=== PATIENT | male | born 1955 | race Caucasian/White ===

== ENCOUNTER 2017-05-27 07:35 | Emergency (ER) | payer OTHER ==
[2017-05-27 07:49] VITALS: TEMP 98.1
[2017-05-27] MEDS ORDERED: SODIUM CHLORIDE 0.9% 500 ML IV STA (08:08)
[2017-05-27] MEDS ORDERED: SODIUM CHLORIDE 0.9% 1,000 ML IV STA (08:08)
[2017-05-27] MEDS ORDERED: methylPREDNISolone SOD SUCCI 125 MG/2 ML VIAL IV STA (08:08)
[2017-05-27] MEDS ORDERED: IPRATROPIUM-ALBUTEROL 3 ML NEB INHALATION STA (08:08)
[2017-05-27] MEDS ORDERED: LORazepam 2 MG/ML INJ IV STA ×2 (08:19→13:16)
[2017-05-27 08:23] LABS: Basophils % (A) 0 %; Eosinophils # (A) 0.1 k/uL (0-0.7); Eosinophils % (A) 2 %; HCT 36.6 % (39.0-53.0); HGB 11.6 gm/dL (13.0-17.5); Lymphocytes # (A) 0.9 k/uL (1.0-4.8); Lymphocytes % (A) 11 %; MCH 28.1 pg (25.0-35.0); MCHC 31.7 g/dL (31.0-37.0); MCV 88.8 fL (80.0-100.0); Mean Platelet Volume 6.4; Monocytes # (A) 0.7 k/uL (0-1.0); Monocytes % (A) 9 %; Neutrophils # (A) 5.8 k/uL (1.3-7.7); Neutrophils % (A) 77 %; Platelet Count 445 k/uL (150-450); RBC 4.12 m/uL (4.30-5.90); RDW 15.1 % (11.5-15.5); WBC 7.5 k/uL (3.8-10.6)
[2017-05-27 08:37] LABS: ALT 29 U/L (21-72); AST 16 U/L (17-59); Albumin 3.5 g/dL (3.5-5.0); Alkaline Phosphatase 58 U/L (38-126); Anion Gap 9 mmol/L; Blood Urea Nitrogen 23 mg/dL (9-20); Calcium 9.2 mg/dL (8.4-10.2); Carbon Dioxide 32 mmol/L (22-30); Chloride 99 mmol/L (98-107); Glucose 86 mg/dL (74-99); Sodium 140 mmol/L (137-145); Total Bilirubin 0.3 mg/dL (0.2-1.3)
[2017-05-27 08:38] LABS: Potassium 4.2 mmol/L (3.5-5.1)
[2017-05-27 08:49] LABS: Creatine Kinase 44 U/L (55-170)
[2017-05-27 09:02] LABS: Creatine Kinase MB 1.3 ng/mL (0.0-2.4); Troponin I <0.012 ng/mL (0.000-0.034)
--- NOTE | 2017-05-27 09:12 | XR ---
EXAMINATION TYPE: XR chest 2V DATE OF EXAM: 05/27/2017 HISTORY: difficulty breathing. REFERENCE: NONE. FINDINGS: The lungs are overinflated. There is blunting of both CP angles. I could not exclude small effusions. There is airspace disease in the left upper lobe. The right interlobar artery is enlarged measuring 2 cm. There are increased interstitial markings. Heart size is upper limits of normal. There are multiple healed left-sided rib fractures. IMPRESSION: 1. COPD. 2. PULMONARY ARTERY HYPERTENSION. 3. I CANNOT EXCLUDE SMALL, BILATERAL EFFUSIONS. 4. LEFT UPPER LOBE AIRSPACE DISEASE.
--- NOTE | 2017-05-27 09:52 | ED ---
General Adult HPI - General Chief complaint: Shortness of Breath Stated complaint: DAVID Time Seen by Provider: 05/27/17 07:38 Source: patient, RN notes reviewed, old records reviewed Mode of arrival: EMS Limitations: no limitations - History of Present Illness Initial comments: This is a 8-year-old male to the ER for evaluation. Patient does say for evaluation of shortness of breath cough congestion. Patient has underlying COPD. History of drug abuse, patient coming in today with complaints of shortness of breath on top of complaints of homelessness, depression. Patient has no recent fevers no cough or congestion. No chest pain. Patient was recently admitted to the hospital for pneumonia patient states that did get better. - Related Data Home Medications Medication Instructions Recorded Confirmed Aspirin 81 mg PO DAILY@0600 05/27/17 05/27/17 Cholecalciferol [Vitamin D3] 1,000 unit PO DAILY@0600 05/27/17 05/27/17 Diltiazem Oral [Cardizem Oral] 30 mg PO TID@0600,1500,2200 05/27/17 05/27/17 FLUoxetine HCL [PROzac] 60 mg PO DAILY@0600 05/27/17 05/27/17 LORazepam [Ativan] 1 - 2 mg PO Q4H PRN 05/27/17 05/27/17 Montelukast [Singulair] 10 mg PO DAILY@0600 05/27/17 05/27/17 Nicotine 14Mg/24Hr Patch [Habitrol 1 patch TRANSDERM DAILY 05/27/17 05/27/17 14Mg/24Hr Patch] Omeprazole [PriLOSEC] 20 mg PO DAILY@0600 05/27/17 05/27/17 QUEtiapine [SEROquel] 50 mg PO DIRECTED PRN 05/27/17 05/27/17 Theophylline 24 Hour [Joe-24] 300 mg PO DAILY@0600 05/27/17 05/27/17 lamoTRIgine [LaMICtal] 25 mg PO BID@0600,1730 05/27/17 05/27/17 traZODone HCL 150 mg PO HS@2200 05/27/17 05/27/17 Allergies Allergy/AdvReac Type Severity Reaction Status Date / Time [facility] Allergy Rash/Hives Verified 05/27/17 11:01 Review of Systems ROS Statement: Those systems with pertinent positive or pertinent negative responses have been documented in the HPI. ROS Other: All systems not noted in ROS Statement are negative. Past Medical History Past Medical History: COPD History of Any Multi-Drug Resistant Organisms: None Reported Past Surgical History: Orthopedic Surgery Additional Past Surgical History / Comment(s): testicular surg carpel tunnel Past Psychological History: Depression, Schizophrenia Smoking Status: Former smoker Past Alcohol Use History: Occasional Past Drug Use History: Opiates, Prescription Drug Abuse General Exam Limitations: no limitations General appearance: alert, in no apparent distress, anxious Head exam: Present: atraumatic, normocephalic, normal inspection Eye exam: Present: normal appearance, PERRL, EOMI. Absent: scleral icterus, conjunctival injection, periorbital swelling ENT exam: Present: normal exam, mucous membranes moist Neck exam: Present: normal inspection. Absent: tenderness, meningismus, lymphadenopathy Respiratory exam: Present: normal lung sounds bilaterally, wheezes. Absent: respiratory distress, rales, rhonchi, stridor Cardiovascular Exam: Present: regular rate, normal rhythm, normal heart sounds. Absent: systolic murmur, diastolic murmur, rubs, gallop, clicks GI/Abdominal exam: Present: soft, normal bowel sounds. Absent: distended, tenderness, guarding, rebound, rigid Extremities exam: Present: normal inspection, full ROM, normal capillary refill. Absent: tenderness, pedal edema, joint swelling, calf tenderness Back exam: Present: normal inspection Neurological exam: Present: alert, oriented X3, CN II-XII intact Psychiatric exam: Present: normal affect, normal mood Skin exam: Present: warm, dry, intact, normal color. Absent: rash Course Vital Signs 05/27/17 05/27/17 05/27/17 07:39 08:04 08:37 Temperature 98.1 F Pulse Rate 71 101 H Respiratory 18 16 Rate Blood Pressure 139/82 O2 Sat by Pulse 98 Oximetry 05/27/17 05/27/17 05/27/17 08:51 09:24 12:23 Temperature Pulse Rate 72 87 100 Respiratory 18 18 Rate Blood Pressure 134/82 142/76 O2 Sat by Pulse 96 97 Oximetry 05/27/17 12:52 Temperature Pulse Rate 98 Respiratory 22 Rate Blood Pressure 142/88 O2 Sat by Pulse 93 L Oximetry - Reevaluation(s) Reevaluation #1: 05/27/17 09:52 Patient is improved with breathing treatment, states his breathing is at baseline Reevaluation #2: 05/27/17 09:52 Patient is medically clear for psychiatric evaluation EKG Findings - EKG Comments: EKG Findings:: EKG shows normal sinus rhythm rate of 77, [place] 142, QRS 78, QTC 436 Medical Decision Making - Medical Decision Making 62 male the ER for mild COPD exacerbation, patient was also evaluated for mental health. Recent homelessness. Methods were made and arranges remain regarding assisted and finding a place to live. Patient will be discharged - Lab Data Result diagrams: 05/27/17 07:56 18 07:56 Lab Results 05/27/1718 18 Range/Units 07:56 07:56 07:56 WBC 7.5 (3.8-10.6) k/uL RBC 4.12 L (4.30-5.90) m/uL Hgb 11.6 L (13.0-17.5) gm/dL Hct 36.6 L (39.0-53.0) % MCV 88.8 (80.0-100.0) fL MCH 28.1 (25.0-35.0) pg MCHC 31.7 (31.0-37.0) g/dL RDW 15.1 (11.5-15.5) % Plt Count 445 (150-450) k/uL Neutrophils % 77 % Lymphocytes % 11 % Monocytes % 9 % Eosinophils % 2 % Basophils % 0 % Neutrophils # 5.8 (1.3-7.7) k/uL Lymphocytes # 0.9 L (1.0-4.8) k/uL Monocytes # 0.7 (0-1.0) k/uL Eosinophils # 0.1 (0-0.7) k/uL Basophils # 0.0 (0-0.2) k/uL Sodium 140 (137-145) mmol/L Potassium 4.2 (3.5-5.1) mmol/L Chloride 99 (98-107) mmol/L Carbon Dioxide 32 H (22-30) mmol/L Anion Gap 9 mmol/L BUN 23 H (9-20) mg/dL Creatinine 0.75 (0.66-1.25) mg/dL Est GFR (MDRD) Af Amer >60 (>60 ml/min/1.73 sqM) Est GFR (MDRD) Non-Af >60 (>60 ml/min/1.73 sqM) Glucose 86 (74-99) mg/dL Calcium 9.2 (8.4-10.2) mg/dL Magnesium 2.0 (1.6-2.3) mg/dL Total Bilirubin 0.3 (0.2-1.3) mg/dL AST 16 L (17-59) U/L ALT 29 (21-72) U/L Alkaline Phosphatase 58 (38-126) U/L Total Creatine Kinase 44 L (55-170) U/L CK-MB (CK-2) 1.3 (0.0-2.4) ng/mL CK-MB (CK-2) Rel Index 3.0 Troponin I <0.012 (0.000-0.034) ng/mL NT-Pro-B Natriuret Pep pg/mL Total Protein 6.0 L (6.3-8.2) g/dL Albumin 3.5 (3.5-5.0) g/dL 05/27/17 Range/Units 07:56 WBC (3.8-10.6) k/uL RBC (4.30-5.90) m/uL Hgb (13.0-17.5) gm/dL Hct (39.0-53.0) % MCV (80.0-100.0) fL MCH (25.0-35.0) pg MCHC (31.0-37.0) g/dL RDW (11.5-15.5) % Plt Count (150-450) k/uL Neutrophils % % Lymphocytes % % Monocytes % % Eosinophils % % Basophils % % Neutrophils # (1.3-7.7) k/uL Lymphocytes # (1.0-4.8) k/uL Monocytes # (0-1.0) k/uL Eosinophils # (0-0.7) k/uL Basophils # (0-0.2) k/uL Sodium (137-145) mmol/L Potassium (3.5-5.1) mmol/L Chloride (98-107) mmol/L Carbon Dioxide (22-30) mmol/L Anion Gap mmol/L BUN (9-20) mg/dL Creatinine (0.66-1.25) mg/dL Est GFR (MDRD) Af Amer (>60 ml/min/1.73 sqM) Est GFR (MDRD) Non-Af (>60 ml/min/1.73 sqM) Glucose (74-99) mg/dL Calcium (8.4-10.2) mg/dL Magnesium (1.6-2.3) mg/dL Total Bilirubin (0.2-1.3) mg/dL AST (17-59) U/L ALT (21-72) U/L Alkaline Phosphatase (38-126) U/L Total Creatine Kinase (55-170) U/L CK-MB (CK-2) (0.0-2.4) ng/mL CK-MB (CK-2) Rel Index Troponin I (0.000-0.034) ng/mL NT-Pro-B Natriuret Pep 278 pg/mL Total Protein (6.3-8.2) g/dL Albumin (3.5-5.0) g/dL Disposition Clinical Impression: Acute exacerbation of chronic obstructive airways disease Disposition: HOME SELF-CARE Condition: Good Instructions: Chronic Bronchitis (ED), Acute Bronchitis (ED) Referrals: Nonstaff,Physician [Primary Care Provider] - 1-2 days
[2017-05-27 12:57] VITALS: BP 142/88; PULSE 98; RESP 22
== END 2017-05-27 16:30 | disposition home or self-care (01) ==
LOC: EC 07:35
DX: J44.1 Chronic obstructive pulmonary disease with (acute) exacerbation (principal); F32.9 Major depressive disorder, single episode, unspecified; F20.9 Schizophrenia, unspecified; Z87.891 Personal history of nicotine dependence; Z79.82 Long term (current) use of aspirin; Z79.899 Other long term (current) drug therapy; Z88.8 Allergy status to other drugs, medicaments and biological substances
CPT/HCPCS: 36415; 94640; 93005; 83880; 80053; 82550; 82553; 83735; 84484; 85025; 71046; 99285; 96374; 96375; 96376; 96361 ×2; J2060; J2930